=== PATIENT | female | born 1975 | race Caucasian/White ===

== ENCOUNTER → 2020-09-18 | Outpatient (CLI) | payer OTHER ==
--- NOTE | 2020-09-18 11:42 | XR ---
EXAMINATION TYPE: XR shoulder complete LT DATE OF EXAM: 09/18/2020 CLINICAL HISTORY: pain COMPARISON: NONE TECHNIQUE: Three views of the left shoulder are obtained. FINDINGS: There is no acute fracture/dislocation evident. The acromioclavicular and glenohumeral delfin int spaces appear within normal limits. The visualized ribs are intact and unremarkable. IMPRESSION: 1. There is no acute fracture or dislocation. ICD 10 NO FRACTURE, INITIAL EVALUATION
== END | disposition home or self-care (01) ==
LOC: RADXRMAIN 11:04
PROVIDERS: ATTEND Emergency Medicine
DX: M25.512 Pain in left shoulder (principal)

== ENCOUNTER → 2020-09-22 | Outpatient (CLI) | payer OTHER | END | disposition home or self-care (01) | LOC: RADMRIMAIN 10:14 | PROVIDERS: ATTEND Emergency Medicine | DX: Z53.9 Procedure and treatment not carried out, unspecified reason (principal) ==

== ENCOUNTER → 2020-09-25 | Outpatient (CLI) | payer OTHER ==
--- NOTE | 2020-09-26 | MR ---
EXAMINATION TYPE: MR shoulder LT wo con DATE OF EXAM: 09/25/2020 COMPARISON: None HISTORY: Left shoulder pain, decreased ROM, injury. Multiplanar multiecho imaging of the left shoulder was performed without contrast. Biceps tendon is intact. Subscapularis tendon is intact. There is minimal thinning of the supraspinat us tendon. There is no retraction. I see no full-thickness tear. There is slight increased fluid sign al at the supraspinatus tendon. There is no evidence of a fracture. Glenoid kyler appear intact. I see no bony destructive process. T he AC joint is intact. There is no significant subacromial impingement. IMPRESSION: Very slight increased signal in the supraspinatus tendon consistent with mild tendinitis. No evidence of a full-thickness rotator cuff tear.
== END | disposition home or self-care (01) ==
LOC: RADMRIMAIN 16:48
PROVIDERS: ATTEND Emergency Medicine
DX: M25.512 Pain in left shoulder (principal); S49.92XA Unspecified injury of left shoulder and upper arm, initial encounter

== ENCOUNTER → 2022-08-22 | Outpatient (CLI) | payer OTHER ==
--- NOTE | 2022-08-22 13:26 | XR ---
EXAMINATION TYPE: XR knee complete bilateral DATE OF EXAM: 08/22/2022 COMPARISON: NONE HISTORY: 46-year-old female M25.561, M25.562 Pain Bilat Knees TECHNIQUE: 3 views each side FINDINGS: Minimal degenerative spurring medial and patellofemoral compartments. On the left, there ap pears to moderate knee joint effusion. Extensor mechanisms are intact. No acute fracture, subluxation , or dislocation is seen. IMPRESSION: 1. Minimal early spurring in the medial and patellofemoral compartments. 2. A moderate left knee joint effusion. No acute osseous abnormality seen. If concern for internal de rangement, MRI can be performed.
== END | disposition home or self-care (01) ==
LOC: RADXRMAIN 11:32
PROVIDERS: ATTEND Nurse Practitioner Family
DX: M25.462 Effusion, left knee (principal); M25.761 Osteophyte, right knee

== ENCOUNTER → 2023-03-13 | Outpatient (CLI) | payer OTHER ==
--- NOTE | 2023-03-13 12:31 | XR ---
EXAMINATION TYPE: XR cervical spine 3 views, XR lumbar spine 3V DATE OF EXAM: 03/13/2023 Comparison: None Clinical History: 47-year-old female M54.9 DORSALGIA, UNSPECIFIED Findings: Cervical spine: No predental space widening or prevertebral soft tissue swelling. There is preserved alignment of the cervical spine and preserved disc interspaces. Mild uncovertebral joint spurring in the lower cervic al spine. Normal odontoid view. Lumbar spine: Cholecystectomy clips. 5 lumbar type vertebral bodies. There is moderate degenerative disc disease at L4-L5. Hypertrophic facet arthropathy mid to lower lumbar spine. There is nearly grade 2 anterolisth esis at L4-L5. Mild degenerative disc disease visualized lower thoracic spine. Vertebral body heights are preserved. Impression: 1. Cervical spine: Very mild uncovertebral joint spurring in the lower cervical spine. No prevertebra l soft tissue swelling or malalignment. 2. Lumbar spine: Nearly grade 2 anterolisthesis at L4-L5. This could be secondary to hypertrophic fac et arthropathy or underlying bilateral L4 pars defects. Consider CT for more detailed assessment of t he bony anatomy. Moderate degenerative disc disease here.
== END | disposition home or self-care (01) ==
LOC: RADXRMAIN 09:58
PROVIDERS: ATTEND Internal Medicine Geriatric Medicine
DX: M43.16 Spondylolisthesis, lumbar region (principal); M51.36 Other intervertebral disc degeneration, lumbar region; M54.2 Cervicalgia
CPT/HCPCS: 72040; 72100

== ENCOUNTER → 2023-05-25 | Outpatient (CLI) | payer OTHER ==
--- NOTE | 2023-05-25 16:28 | XR ---
EXAMINATION TYPE: XR pelvis AP view DATE OF EXAM: 05/25/2023 COMPARISON: None HISTORY: Lumbar pain TECHNIQUE: AP pelvis FINDINGS: Femoral heads articulate with the acetabulum. Joint spaces are preserved. Symphysis pubis a nd sacroiliac joints are normal. No acute fracture or dislocation is evident. Some vacuum disc phenom enon is at the L4-5 level. IMPRESSION: 1. No acute osseous abnormality AP pelvis.
--- NOTE | 2023-05-25 16:55 | XR ---
EXAMINATION TYPE: XR lumbar spine with bend/flex DATE OF EXAM: 05/25/2023 COMPARISON: 03/13/2023 HISTORY: Lumbar pain TECHNIQUE: 5 view lumbar spine supplemented with flexion and extension views FINDINGS: Spondylolysis of the 4 is evident. There is a grade 1 spondylolisthesis of L4 anteriorly on L5. There is loss of disc height L4-5. Remaining disc heights are preserved. Vertebral body heights are preserved. Alignment appears preserved through flexion and extension and neutral position IMPRESSION: 1. Spondylolisthesis of L4 with a grade 1 spondylolisthesis of L4 anteriorly on L5. 2. Loss of disc height L4-5.
== END | disposition home or self-care (01) ==
LOC: RADXRMAIN 13:07
PROVIDERS: ATTEND Orthopaedic Surgery
DX: M43.16 Spondylolisthesis, lumbar region (principal)
CPT/HCPCS: 72114; 72170